=== PATIENT | male | born 1990 | race Two or more races ===

== ENCOUNTER 2016-11-02 08:43 | Emergency (ER) | payer MEDICAID ==
[~2016-11-02] VITALS: Ht 177.8 cm; Wt 98.9 kg
== END 2016-11-02 10:49 | disposition home or self-care (01) ==
LOC: ED 08:43
DX: I88.9 Nonspecific lymphadenitis, unspecified (principal); L02.811 Cutaneous abscess of head [any part, except face]; J06.9 Acute upper respiratory infection, unspecified; Z79.899 Other long term (current) drug therapy

== ENCOUNTER 2017-09-26 10:50 | Emergency (ER) | payer MEDICAID ==
[~2017-09-26] VITALS: Ht 180.3 cm; Wt 97.5 kg
[2017-09-26 11:03] VITALS: Ht 180.3 cm; Wt 97.5 kg
[2017-09-26 12:15] VITALS: BP 121/69
== END 2017-09-26 12:48 | disposition home or self-care (01) ==
LOC: ED 10:50
DX: S93.402A Sprain of unspecified ligament of left ankle, initial encounter (principal); X50.1XXA Overexertion from prolonged static or awkward postures, initial encounter; Y93.67 Activity, basketball; Y99.8 Other external cause status; Y92.89 Other specified places as the place of occurrence of the external cause
CPT/HCPCS: Q0092